=== PATIENT | male | born 1955 | race American Indian/Alaskan Native ===

== ENCOUNTER 2018-04-17 10:00 | Outpatient (CLI) | payer MEDICARE ==
--- NOTE | 2018-04-17 12:14 | Mammography Report ---
BONE DEXA:04/17/18 CLINICAL: 63-year-old male at risk for osteoporosis. No comparison. TECHNIQUE: Two site bone DEXA performed on an Hologic scanner. FINDINGS: The average BMD of the lumbar spine L1-L4 is 0.816g/cm squared with a T-score of -3.5 and a Z-score of -2.7. The average BMD of the left hip is 0.922g/cm squared with a T-score of -1.5 and a Z-score of -0.6. IMPRESSION: 1. WHO classification: Osteoporosis with high fracture risk based on lumbar spine measurements. 2. WHO classification: Osteopenia with increased fracture risk based on left hip measurements. RECOMMENDATION: Clinical correlation and routine screening. DEFINITIONS: BMD = Bone Mineral Density T-score = BMD related to mean peak bone mass of young adult (mean expressed in Standard Deviation) Z-score = Age matched BMD expressed in SD World Health Organization (WHO) Diagnostic Criteria Normal T-score > -1 SD Osteopenia T-score between -1 and -2.4 SD Osteoporosis T-score -2.5 SD or below NOTE: BMD is not the only risk factor for fracture. One should also consider factors such as the patient's age, risk of falling, previous osteoporotic fracture, family history of osteoporotic fractures, current smoker, and low body weight. Z-scores are not calculated if >80 years of age.
== END 2018-04-17 10:01 | disposition home or self-care (01) ==
LOC: SPVWC 10:00
PROVIDERS: ATTEND Internal Medicine Infectious Disease
DX: M81.8 Other osteoporosis without current pathological fracture (principal)
CPT/HCPCS: 77080

== ENCOUNTER 2018-05-26 10:01 | Outpatient (CLI) | payer MEDICARE ==
--- NOTE | 2018-05-26 11:32 | Ultrasound Report ---
ULTRASOUND RENAL BILATERAL HISTORY: Kidney disease. TECHNIQUE: transabdominal ultrasound with color Doppler interrogation. FINDINGS: The right kidney measures 10.1 x 4.2 x 5.5cm. Right renal cortex: 1.4cm. The left kidney measures 9.4 x 4.6 x 5.9cm. Left renal cortex: 1.0cm. Scans of the kidneys show normal renal contours. There is normal central calyceal clustering and good preservation of the cortical thickness. There is no evidence of mass or hydronephrosis. 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 The views of the bladder and the region of the ureters appear normal. IMPRESSION: Unremarkable renal ultrasound.
== END 2018-05-26 10:02 | disposition home or self-care (01) ==
LOC: US 10:01
PROVIDERS: ATTEND Specialist
DX: N18.9 Chronic kidney disease, unspecified (principal)
CPT/HCPCS: 76770

== ENCOUNTER 2019-03-16 06:44 | Day surgery (SDC) | payer MEDICARE ==
[2019-03-16 07:35] LABS: Basophils % (Auto) 0.2 % (0.0-1.8); Eosinophils # (Auto) 0.5 K/mm3 (0.0-0.4); Eosinophils % (Auto) 8.7 % (0.0-4.3); Hematocrit 38.9 % (35.5-45.6); Hemoglobin 12.6 gm/dl (11.8-15.2); INR 0.96 (0.87-1.13); Lymphocytes # (Auto) 2.5 K/mm3 (1.2-5.4); Lymphocytes % (Auto) 44.7 % (13.4-35.0); Mean Corpuscular HGB Conc 32 % (32-34); Mean Corpuscular Volume 85 fl (84-94); Monocytes # (Auto) 0.4 K/mm3 (0.0-0.8); Monocytes % (Auto) 7.7 % (0.0-7.3); Platelet Count 317 K/mm3 (140-440); Red Blood Count 4.61 M/mm3 (3.65-5.03)
[2019-03-16 07:36] LABS: Partial Thromboplastin Time 27.4 Sec. (24.2-36.6)
[2019-03-16 07:41] LABS: Calcium 8.9 mg/dL (8.4-10.2)
[2019-03-16] MEDS ORDERED: SODIUM CHLORIDE 0.9% 500 ML 500 ML IV SCH (08:00)
[2019-03-16] MEDS ORDERED: SODIUM CHLORIDE 0.9% 1000 ML 1,000 ML IV SCH (08:30)
[2019-03-16] MEDS ORDERED: HEPARIN/NS 5000 UNIT/500ML 1,000 ML IR ONE (10:48)
[2019-03-16] MEDS ORDERED: fentaNYL 100 MCG/2 ML INJ ONE (10:48)
[2019-03-16] MEDS ORDERED: MIDAZOLAM 2 MG/2 ML INJ ONE (10:48)
[2019-03-16] MEDS ORDERED: HEPARIN 10,000 UNITS/10 ML VIAL ONE (10:48)
[2019-03-16] MEDS ORDERED: LIDOCAINE (2%) 20 MG/1 ML VIAL 20 ML MDV INFILTRATI ONE (10:49)
--- NOTE | 2019-03-16 12:20 | Discharge Summary ---
Short Stay Discharge Plan Activity: advance as tolerated Weight Bearing Status: Partial Weight Bearing Diet: low fat, low cholesterol, low salt Wound: keep clean and dry Special Instructions: no heavy lifting (3 days) Follow up with: JACK SHAW MD [Primary Care Provider] - 7 Days WICHO DOWELL MD [Staff Physician] - 7 Days
--- NOTE | 2019-03-16 12:40 | Cardiac Catherization Report ---
CARDIAC CATHETERIZATION REPORT REASON FOR PROCEDURE: Chest pain. The patient is a 64-year-old man referred for outpatient cardiac catheterization. On presentation, we found an elevated creatinine of 1.7. The patient was hydrated with normal saline at 100 mL an hour for several hours prior to the procedure. Risks and benefits were discussed with the patient including an elevated risk of contrast nephropathy, which the patient understood and consented to proceed. We will plan to perform angiography with minimal contrast load of Visipaque. PROCEDURES: 1. Left heart catheterization. 2. Selective left and right coronary angiography. 3. Left ventricular angiography. 4. Sedation time, start 11:48 and end 11:56. The patient was prepped and draped in a sterile fashion after informed consent. Right femoral artery was entered using Seldinger technique followed by placement of a 6-Mauritian sheath. Selective right and left coronary angiography was performed using #4 right and left Samy catheters. The catheters were then removed, sheath removed, and hemostasis achieved using an Angio-Seal device. The patient was returned to the postprocedure unit in stable condition. There were no complications. FINDINGS: HEMODYNAMICS: Left ventricular end-diastolic pressure was 30-35, following coronary angiography. Ascending aortic pressure 152/87 mmHg. There was no significant pressure gradient on pullback across the aortic valve. CORONARY ANGIOGRAPHY: Left main coronary artery was free of significant disease. The left anterior descending artery and its diagonal branches contained diffuse mild atherosclerosis, with no significant obstructive lesions noted. A large ramus intermedius artery also contained diffuse mild atherosclerosis. The circumflex artery and its obtuse marginal branches contained diffuse mild atherosclerosis. The right coronary artery was dominant and also contained diffuse mild atherosclerosis. There was mild left ventricular systolic dysfunction with ejection fraction estimated at 40-45%. CONCLUSION: 1. Mild nonobstructive irregularities as noted above. 2. Mild nonischemic cardiomyopathy with ejection fraction of 40-45%. RECOMMENDATIONS: Risk factor modification and medical therapy. The total contrast used for the procedure was 30 mL of Visipaque. JOB# [id number] CA/NTS
[2019-03-16 17:03] VITALS: BP 112/79
== END 2019-03-16 17:15 | disposition home or self-care (01) ==
LOC: CATHLABREC 06:44
PROVIDERS: ATTEND Internal Medicine Cardiovascular Disease
DX: R07.89 Other chest pain (principal); I25.10 Atherosclerotic heart disease of native coronary artery without angina pectoris; I42.9 Cardiomyopathy, unspecified; I10 Essential (primary) hypertension; Z79.899 Other long term (current) drug therapy; Z79.82 Long term (current) use of aspirin; Z98.890 Other specified postprocedural states; Z86.2 Personal history of diseases of the blood and blood-forming organs and certain disorders involving the immune mechanism
CPT/HCPCS: 36415; 80048; 85025; 85610; 85730; 93005; 93010; 93458; 96360; 96361; C1760; C1894; J1644; J2250; J3010; J7030; J7040; Q9967

== ENCOUNTER 2019-10-26 16:26 | Emergency (ER) | payer MEDICARE ==
[2019-10-26 17:31] VITALS: BP 142/92
[2019-10-26 17:50] LABS: Calcium 9.5 mg/dL (8.4-10.2)
[2019-10-26 17:57] LABS: Basophils # (Auto) 0.1 K/mm3 (0.0-0.1); Basophils % (Auto) 1.1 % (0.0-1.8); Eosinophils # (Auto) 0.2 K/mm3 (0.0-0.4); Eosinophils % (Auto) 3.5 % (0.0-4.3); Hematocrit 36.5 % (35.5-45.6); Hemoglobin 11.7 gm/dl (11.8-15.2); Lymphocytes # (Auto) 2.3 K/mm3 (1.2-5.4); Lymphocytes % (Auto) 33.8 % (13.4-35.0); Mean Corpuscular HGB Conc 32 % (32-34); Mean Corpuscular Volume 89 fl (84-94); Monocytes # (Auto) 0.7 K/mm3 (0.0-0.8); Monocytes % (Auto) 10.8 % (0.0-7.3); Platelet Count 353 K/mm3 (140-440); Red Blood Count 4.09 M/mm3 (3.65-5.03); Red Cell Distribution Width 13.9 % (13.2-15.2)
[2019-10-26 19:18] LABS: Bilirubin,Urine NEG (Negative); Blood,Urine NEG (Negative); Color,Urine Colorless (Yellow); Protein,Urine <15 mg/dL mg/dL (Negative); Urobilinogen,Urine < 2.0 mg/dL (<2.0)
[2019-10-26 19:24] LABS: Amphetamine Screen,Urine PRESUMPTIVE NEGATIVE; Benzodiazepines Screen,Urine PRESUMPTIVE NEGATIVE; Cannabinoid Screen,Urine PRESUMPTIVE NEGATIVE; Cocaine Screen,Urine PRESUMPTIVE NEGATIVE; Methadone Screen,Urine PRESUMPTIVE NEGATIVE; Opiate Screen,Urine PRESUMPTIVE POSITIVE
[2019-10-26 19:31] LABS: WBC,Urine < 1.0 /HPF (0.0-6.0)
--- NOTE | 2019-10-26 20:07 | Emergency Department Report ---
ED Medical Clearance HPI - General Chief complaint: Medical Clearance Stated complaint: MEDICAL CLEARANCE Source: patient Mode of arrival: Ambulatory - History of Present Illness Initial comments: Patient is a 64-year-old -[place] male with a history of chronic alcohol abuse, hypertension and HIV who presents to the ED for medical clearance for placement for alcohol detox program at [facility]. Patient states that he is a chronic alcohol abuser and would like to go for alcohol detox in order to concentrate on taking his regular medications. Patient denies suicidal or homicidal ideation, hallucinations, nausea, vomiting, chest pain, shortness of breath, headache, seizures, dizziness, syncope or fever, cough, chills or palpitations. MD Complaint: medical clearance request, other (chronic alcohol abuse, medical clearance for [facility] admission) -: year(s) (2) Reason for Medical Clearance: intoxication, psychiatric condition, other (chronic alcohol abuse) Place: home Alledged Intoxication: Yes Compliant with Home Medications: No Traumatic Symptoms: denies traumatic injury Associated Symptoms: denies: chest pain, shortness of breath, palpitations, diaphoresis, confusion, headaches, anorexia, nausea/vomiting, seizure, weakness Treatments Prior to Arrival: none Home medications: Home Medications Medication Instructions Recorded Confirmed Last Taken Abacavir [Ziagen TAB] 600 mg PO DAILY 03/15/19 03/16/19 03/16/19 06:00 600 mg Aspirin [Adult Aspirin] 81 mg PO DAILY 03/15/19 03/16/19 03/16/19 06:00 81 mg Cholecalciferol Vit D3 [Vitamin D3 2,000 unit PO QDAY 03/15/19 03/16/19 03/16/19 06:30 1,000 UNIT TAB] 2000 units Dolutegravir [Tivicay] 50 mg PO DAILY 03/15/19 03/16/19 03/16/19 06:30 50 mg Losartan [Cozaar] 25 mg PO QDAY 03/15/19 03/16/19 03/16/19 06:30 25 mg Metoprolol Succinate [Toprol Xl] 25 mg PO DAILY 03/15/19 03/16/19 03/16/19 06:00 25 mg Nitroglycerin [Nitrostat] 0.4 mg SL Q5M PRN 03/15/19 03/15/19 Unknown Pravastatin [Pravachol] 40 mg PO DAILY 03/15/19 03/16/19 03/15/19 40 mg Sodium Bicarbonate 650 mg PO BID 03/15/19 03/16/19 03/16/19 06:30 Tamsulosin [Flomax] 0.4 mg PO QDAY 03/15/19 03/16/19 03/16/19 06:00 0.4mg amLODIPine 10 mg PO DAILY 03/15/19 03/16/19 03/16/19 06:30 10 mg Allergies/Adverse reactions: Allergies Allergy/AdvReac Type Severity Reaction Status Date / Time No Known Allergies Allergy Unverified 05/26/18 10:02 ED Review of Systems ROS: Stated complaint: MEDICAL CLEARANCE Other details as noted in HPI Constitutional: malaise. denies: chills, fever Eyes: denies: eye pain, eye discharge, vision change ENT: denies: ear pain, throat pain Respiratory: denies: cough, shortness of breath, wheezing Cardiovascular: denies: chest pain, palpitations Endocrine: no symptoms reported Gastrointestinal: denies: abdominal pain, nausea, vomiting, diarrhea Genitourinary: denies: urgency, dysuria Musculoskeletal: denies: back pain, joint swelling, arthralgia Skin: denies: rash, lesions Neurological: denies: headache, weakness, paresthesias Psychiatric: anxiety. denies: depression, auditory hallucinations, visual hallucinations, homicidal thoughts, suicidal thoughts Hematological/Lymphatic: denies: easy bleeding, easy bruising ED Past Medical Hx - Past Medical History Hx Hypertension: Yes Hx Kidney Stones: No Hx HIV: Yes - Surgical History Past Surgical History?: Yes Additional Surgical History: abd - Social History Smoking Status: Never Smoker Substance Use Type: Alcohol - Medications Home Medications: Home Medications Medication Instructions Recorded Confirmed Last Taken Type Abacavir [Ziagen TAB] 600 mg PO DAILY 03/15/19 03/16/19 03/16/19 06:00 History 600 mg Aspirin [Adult Aspirin] 81 mg PO DAILY 03/15/19 03/16/19 03/16/19 06:00 History 81 mg Cholecalciferol Vit D3 [Vitamin D3 2,000 unit PO QDAY 03/15/19 03/16/19 03/16/19 06:30 History 1,000 UNIT TAB] 2000 units Dolutegravir [Tivicay] 50 mg PO DAILY 03/15/19 03/16/1903/16/20 06:30 History 50 mg Losartan [Cozaar] 25 mg PO QDAY 03/15/19 03/16/19 03/16/19 06:30 History 25 mg Metoprolol Succinate [Toprol Xl] 25 mg PO DAILY 03/15/19 03/16/19 03/16/19 06:00 History 25 mg Nitroglycerin [Nitrostat] 0.4 mg SL Q5M PRN 03/15/19 03/15/19 Unknown History Pravastatin [Pravachol] 40 mg PO DAILY 03/15/19 03/16/19 03/15/19 History 40 mg Sodium Bicarbonate 650 mg PO BID 03/15/19 03/16/19 03/16/19 06:30 History Tamsulosin [Flomax] 0.4 mg PO QDAY 03/15/19 03/16/19 03/16/19 06:00 History 0.4mg amLODIPine 10 mg PO DAILY 03/15/19 03/16/19 03/16/19 06:30 History 10 mg ED Physical Exam - General Limitations: No Limitations General appearance: alert, in no apparent distress - Head Head exam: Present: atraumatic, normocephalic, normal inspection - Eye Eye exam: Present: normal appearance, PERRL Pupils: Present: normal accommodation - ENT ENT exam: Present: normal exam, normal orophraynx, mucous membranes moist, TM's normal bilaterally, normal external ear exam - Neck Neck exam: Present: normal inspection, full ROM - Respiratory Respiratory exam: Present: normal lung sounds bilaterally. Absent: respiratory distress, wheezes, rhonchi, chest wall tenderness, accessory muscle use, prolonged expiratory - Cardiovascular Cardiovascular Exam: Present: regular rate, normal rhythm, normal heart sounds. Absent: systolic murmur, diastolic murmur, rubs, gallop - GI/Abdominal GI/Abdominal exam: Present: soft, normal bowel sounds. Absent: tenderness, guarding, rebound, hyperactive bowel sounds - Extremities Exam Extremities exam: Present: normal inspection, full ROM, normal capillary refill - Back Exam Back exam: Present: normal inspection, full ROM. Absent: tenderness, CVA tenderness (R), CVA tenderness (L), muscle spasm, paraspinal tenderness - Neurological Exam Neurological exam: Present: alert, oriented X3, CN II-XII intact, normal gait, reflexes normal - Psychiatric Psychiatric exam: Present: normal affect, normal mood, anxious - Skin Skin exam: Present: warm, dry, intact, normal color. Absent: rash ED Course Vital Signs 10/26/19 16:54 Temperature 98.3 F Pulse Rate 80 Respiratory 18 Rate Blood Pressure 142/92 O2 Sat by Pulse 99 Oximetry ED Medical Decision Making - Lab Data Result diagrams: 10/26/19 17:11 10/26/19 23:01 - Medical Decision Making This is a 64-year-old -[place] male with a history of chronic alcohol abuse, hypertension and HIV who presents to the ED for medical clearance for placement for alcohol detox program at [facility]. Patient states that he is a chronic alcohol abuser and would like to go for alcohol detox in order to concentrate on taking his regular medications. In the ED, patient is alert and oriented x3 and is not in distress. Lab test results were reviewed and are all unremarkable and nonactionable except for significantly el evated BUN and creatinine levels, which were 55 and 2.7 respectively. The creatinine level 9 months ago was 1.7 with normal BUN. Patient was treated in the ED with normal saline 1 L IV bolus. Repeat BMP after 1 L of normal saline IV fluids showed a slightly improved BUN and creatinine level of 51 and 2.4 respectively. Patient already has a group therapy counselor and urologist that he had followed up with about 12 hours ago and who also noted there worsening chronic kidney disease based on the history the patient provided. Patient was therefore discharged from the ED and advised to follow-up with his urologist and group therapy counselor in 5 to 7 days for reevaluation. Patient was also advised to drink plenty of fluids mainly water in order to improve the kidney functions. Patient was meanwhile cleared for alcohol rehab at [facility]. Patient was advised return to the ED immediately if symptoms get worse. - Differential Diagnosis Chronic alcohol abuse; CKD; Dehydration ED Disposition Clinical Impression: Chronic alcohol abuse, Medical clearance for psychiatric admission, Dehydration Chronic kidney disease (CKD) Qualifiers: Chronic kidney disease stage: stage 3 (moderate) Qualified Code(s): N18.3 - Chronic kidney disease, stage 3 (moderate) Disposition: DC-01 TO HOME OR SELFCARE Is pt being admited?: No Does the pt Need Aspirin: No Condition: Stable Instructions: Chronic Kidney Disease (ED), Abuse of Alcohol (ED), Dehydration (ED) Additional Instructions: Drink plenty of fluids to improve on your kidney functions, follow-up with your urologist or group therapy counselor in 5 to 7 days for reevaluation. You are therefore cleared for alcohol rehab at [facility]. Referrals: [facility] [Provider Group] - 3-5 Days Time of Disposition: 23:59 Print Language: ETHIOPIAN
[2019-10-26] MEDS ORDERED: SODIUM CHLORIDE 0.9% 1000 ML 1,000 ML IV ONE (20:10)
[2019-10-26 20:36] LABS: Alanine Aminotransferase 70 units/L (7-56); Albumin 4.6 g/dL (3.9-5)
[2019-10-26 20:49] LABS: Bilirubin,Direct < 0.2 mg/dL (0-0.2)
[2019-10-26 23:35] LABS: Calcium 8.9 mg/dL (8.4-10.2)
== END 2019-10-27 00:05 | disposition home or self-care (01) ==
LOC: ED 16:26
DX: I12.9 Hypertensive chronic kidney disease with stage 1 through stage 4 chronic kidney disease, or unspecified chronic kidney disease (principal); N18.3 Chronic kidney disease, stage 3 (moderate); E86.0 Dehydration; F10.129 Alcohol abuse with intoxication, unspecified; G89.29 Other chronic pain; Z79.899 Other long term (current) drug therapy
CPT/HCPCS: 36415; 80048; 80076; 80307; 81001; 85025; 96360; 99283; J7030; 80320; G0480